=== PATIENT | male | born 1975 | race Caucasian/White ===

== ENCOUNTER 2022-08-31 07:18 | Emergency (ER) | payer BC, OTHER ==
[2022-08-31] MEDS ORDERED: Famotidine/PF 20 mg/2ml Vial ONE (07:41)
[2022-08-31] MEDS ORDERED: methylPREDNISolone Sod Succ/PF 125 MG/2 ML VIAL ONE (07:41)
[2022-08-31] MEDS ORDERED: diphenhydrAMINE 50 MG/ML VIAL ONE (07:41)
[2022-08-31] MEDS ORDERED: Sodium Chloride 0.9% 1,000 ML ONE (07:41)
== END 2022-08-31 10:10 | disposition home or self-care (01) ==
LOC: NAV ERS 07:18
DX: T78.1XXA Other adverse food reactions, not elsewhere classified, initial encounter (principal); R22.0 Localized swelling, mass and lump, head; I45.10 Unspecified right bundle-branch block; Z87.891 Personal history of nicotine dependence
CPT/HCPCS: 93005; 96374; 96375; J1200; J2930; J7050; S0028